=== PATIENT | female | born 1995 | race African-American/Black ===

== ENCOUNTER 2021-04-09 01:47 | Inpatient (IN) | payer SELFPAY ==
[~2021-04-09] VITALS: Ht 162.6 cm; Wt 125.7 kg
[2021-04-09 02:59] LABS: RSV AMPLIFICATION NEGATIVE (NEGATIVE)
[2021-04-09] MEDS ORDERED: MORPHINE 4 MG/ML 1ML VIAL/SYRINGE (J2270) IV ONE (03:15)
[2021-04-09] MEDS ORDERED: ONDANSETRON 4MG/2ML VIAL As Ordered ONE ×2 (04:18→19:10)
[2021-04-09] MEDS ORDERED: ONDANSETRON 4MG/2ML VIAL IV ONE (04:20)
--- NOTE | 2021-04-09 04:44 | REPVR ---
PROCEDURE INFORMATION: Exam: XR Right Ankle Exam date and time: 04/09/2021 3:02 AM Age: 25 years old Clinical indication: Pain; Ankle; Right; Additional info: Trauma TECHNIQUE: Imaging protocol: XR Right ankle. Views: 3 or more views. COMPARISON: No relevant prior studies available. FINDINGS: Bones/joints: Oblique fracture of the distal fibular diaphysis with mild displacement of the distal fragment and slight angulation. Distracted fracture of the medial malleolus. There is mild lateral subluxation of the talus relative to the distal tibia. Soft tissues: Soft tissue swelling about the ankle, greatest medially. IMPRESSION: 1. Oblique fracture of the distal fibular diaphysis with mild displacement and slight angulation of the distal fragment. 2. Distracted fracture of the medial malleolus with mild lateral subluxation of the talar dome relative to the distal tibia. Electronically signed by: Tucker Osuna On 04/09/2021 04:44:28 AM
--- NOTE | 2021-04-09 04:46 | REPVR ---
PROCEDURE INFORMATION: Exam: XR Right Tibia and Fibula Exam date and time: 04/09/2021 3:02 AM Age: 25 years old Clinical indication: Pain; Ankle; Right; Additional info: Trauma TECHNIQUE: Imaging protocol: XR Right tibia and fibula. Views: 2 views. COMPARISON: No relevant prior studies available. FINDINGS: Bones/joints: Oblique fracture of the distal fibular diaphysis with mild displacement of the distal fragment and slight angulation. Distracted and slightly displaced fracture of the medial malleolus. Mild lateral subluxation of the talar dome relative to the distal tibia. No proximal tibial or fibular fractures are seen. Soft tissues: Slight subcutaneous edema of the calf. IMPRESSION: 1. Oblique fracture of the distal fibular diaphysis with mild displacement and slight angulation. 2. Distracted and slightly displaced transverse fracture across the medial malleolus with associated mild lateral subluxation of the talar dome relative to the distal tibia. Electronically signed by: Tucker Osuna On 04/09/2021 04:46:13 AM
[2021-04-09] MEDS ORDERED: ONDANSETRON 4MG/2ML VIAL IV PRN ×2 (05:25→19:45)
[2021-04-09] MEDS ORDERED: NS 1,000 ML IV SCH ×2 (05:30→20:50)
[2021-04-09] MEDS ORDERED: HOME MED LIST COMPLETE! XX SCH (05:55)
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
[2021-04-09 06:01] LABS: HEMATOCRIT 40.4 % (36.0-47.0); MEAN CORPUSCULAR HEMOGLOBIN 28.4 pg (27.0-33.0); MEAN CORPUSCULAR HGB CONC 32.2 g/dl (32.0-36.5); MEAN CORPUSCULAR VOLUME 88.4 fl (80.0-96.0); PLATELET COUNT, AUTOMATED 431 10^3/uL (150-450); RED BLOOD COUNT 4.57 10^6/uL (4.00-5.40); WHITE BLOOD COUNT 11.9 10^3/uL (4.0-10.0)
[2021-04-09 06:11] LABS: ALBUMIN 3.9 GM/DL (3.2-5.2); ALT/SGPT 29 U/L (12-78); BILIRUBIN,TOTAL < 0.1 MG/DL (0.2-1.0); BLOOD UREA NITROGEN 13 MG/DL (7-18); CALCIUM LEVEL 9.2 MG/DL (8.5-10.1); CARBON DIOXIDE LEVEL 24 MEQ/L (21-32); CHLORIDE LEVEL 107 MEQ/L (98-107); CREATININE FOR GFR 0.83 MG/DL (0.55-1.30); ETHYL ALCOHOL (ETHANOL) 0.079 % (0.000-0.010); GLOMERULAR FILTRATION RATE > 60.0 (>60); GLUCOSE, FASTING 83 MG/DL (70-100); POTASSIUM SERUM 3.6 MEQ/L (3.5-5.1); SODIUM LEVEL 138 MEQ/L (136-145); TOTAL PROTEIN 8.5 GM/DL (6.4-8.2)
[2021-04-09 07:05] VITALS: BP 156/85
[2021-04-09 08:04] LABS: INR 1.02; PROTHROMBIN TIME 13.8 SECONDS (12.7-14.5)
[2021-04-09] MEDS: MORPHINE 4 MG/ML 1ML VIAL/SYRINGE (J2270) IV PRN (08:44)
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
[2021-04-09 13:04] LABS: HCG, SERUM QUALITATIVE NEGATIVE (NEGATIVE)
[2021-04-09] MEDS ORDERED: MIDAZOLAM INJ 2MG/2ML VIAL (J2250 PER 1MG) As Ordered ONE ×2 (13:52→19:10)
[2021-04-09] MEDS ORDERED: MORPHINE 2 MG/ML 1ML VIAL (J2270) As Ordered ONE (13:52)
[2021-04-09] MEDS: HEPARIN SOD (PORCINE) 5000UNITS/ML 1ML VIAL/SYRINGE SQ SCH ×2 (14:00→21:53)
[2021-04-09] MEDS ORDERED: MORPHINE 10 MG/ML 1ML VIAL (J2270) IV PRN (14:09)
[2021-04-09] MEDS ORDERED: MIDAZOLAM INJ 2MG/2ML VIAL (J2250 PER 1MG) IV PRN (14:10)
[2021-04-09] MEDS ORDERED: ceFAZolin 2 GM/D5W 50 ML IV BAG (J0690 PER 500MG) As Ordered ONE (17:20)
[2021-04-09] MEDS ORDERED: ceFAZolin 1GM VIAL (J0690 PER 500MG) As Ordered ONE (17:21)
[2021-04-09] MEDS ORDERED: BUPIVACAINE LIPOSOME/PF 1.3% 20ML VIAL (13.3MG/ML)(EXPAREL)(C9290 PER1MG) As Ordered ONE (18:59)
[2021-04-09] MEDS ORDERED: BUPIVACAINE HCL 0.25% 10ML VIAL As Ordered ONE (18:59)
[2021-04-09] MEDS ORDERED: ACETAMINOPHEN 1000MG 100ML IV BTL (OFIRMEV) (J0131 PER 10MG) As Ordered ONE (19:10)
[2021-04-09] MEDS ORDERED: SUGAMMADEX SODIUM 500 MG/5 ML VIAL (BRIDION) As Ordered ONE (19:10)
[2021-04-09] MEDS ORDERED: LIDOCAINE 2% 100MG/5ML SDV (FOR ANES.) As Ordered ONE (19:10)
[2021-04-09] MEDS ORDERED: dexameTHASONE 4 MG/ML 1ML VIAL (J1100 PER 1MG) As Ordered ONE (19:10)
[2021-04-09] MEDS ORDERED: GLYCOPYRROLATE INJ 0.2 MG/ML 2 ML VIAL As Ordered ONE (19:10)
[2021-04-09] MEDS ORDERED: HYDROmorphone HCL 2 MG/ML 1ML VIAL As Ordered ONE (19:10)
[2021-04-09] MEDS ORDERED: ROCURONIUM BROMIDE 50 MG/5 ML VIAL As Ordered ONE (19:10)
[2021-04-09] MEDS ORDERED: fentaNYL 100 MCG/2 ML INJECTION (J3010) As Ordered ONE ×2 (19:10→19:41)
[2021-04-09] MEDS ORDERED: propofoL 200 MG/20 ML VIAL As Ordered ONE (19:10)
--- NOTE | 2021-04-09 19:41 | ROOPDOC ---
[facility] Report Of Operation Report of Operation DATE OF PROCEDURE: 04/09/21 PREPROCEDURE DIAGNOSES: [Right bimalleolar ankle fracture Hernandez C]. POSTPROCEDURE DIAGNOSES: [Right bimalleolar ankle fracture Hernandez C]. PROCEDURE PERFORMED: [Open reduction internal fixation right ankle fracture, syndesmosis reduction and fixation using 2 tight ropes.]. SURGEON: [Brian laboy], SOIL FIELD TECHNICIAN: [technical administrator], ANESTHESIA: [General anesthetic]. ESTIMATED BLOOD LOSS: Approximately [100 cc] mL. COMPLICATIONS: [No complication]. REMARKS: . FINDINGS: [Hernandez a fracture with disruption of the syndesmosis and transverse medial malleolus avulsion fracture.] SPECIMENS REMOVED: PROCEDURE NOTE: . DESCRIPTION OF PROCEDURE: [Patient was met in the holding area. H&P was reviewed. Consent was confirmed. Right leg was marked. Patient was then taken into the operative room here at [facility]. He was then given a general anesthetic in usual manner. She was given 3 g of Ancef preoperatively. Pressure cuff was then applied to the right upper thigh. Total tourniquet time was less than 1 hour. Patient is then prepped and draped in usual manner Patient is placed supine the operative room table. A bump was placed under her right hip. Her right leg was then elevated on a bolster. We then did fluoroscopic x-rays. She had a transverse medial malleolus fracture. Widening of syndesmosis and a distal third fibula fracture with a large posterior butterfly fragment. We first started with the medial malleolus. He made an incision over the medial malleolus approximately 2 inches in length. We deepened that down to the fracture site. Elevated periosteum off the edges. We then irrigated out the ankle joint and fracture. We then use a drill hole on large sharp reduction forceps to reduce the fracture. Using fluoroscopic guidance we thought we had an anatomic reduction. We then used 4.0 cannulated screws to maintain the reduction. Foot was placed K wires through percutaneous incisions. Wires went across the fracture at 90 degrees. We then used a cannulated drill over the wires. And then placed 40 and 50 mm cannulated screws. Fluoroscopic guidance we thought we got a good anatomic reduction of the medial malleolus. Proceeded now to lateral side. Mated to incision directly lateral over the fibula at the level of the syndesmosis. The fracture was proximal so we reduce the syndesmosis using a large AO reduction forceps. With the syndesmosis reduced we also thought we had good anatomic reduction of the fibula and a good anatomic reduction syndesmosis. Symmetric mortise. We then decided to use 2 Arthrex tight rope's to maintain the syndesmosis in a reduced position. We tried to place the first tightrope approximately 2 cm above the ankle joint and the other 1 approximately 3.5 cm above the ankle joint. We placed tightrope using fluoroscopic guidance aiming approximately 30 degrees anterior. We tightened both tightropes. We then remove the clamp. We took final x-rays. We irrigated wound with copious amounts of saline. Closed the both wounds with 2-0 Vicryl interrupted and a running Monocryl. We used Steri-Strips to help with closure. We then infiltrated the wound with Marcaine and Exparel. We placed a sterile dressing over the wounds. We then placed the patient in a plaster splint for comfort. She is then awakened from anesthesia. [facility] And [facility] to recovery in a sterile manner. Plan: Nonweightbearing right ankle for 6 weeks. DVT prophylaxis 81 mg p.o. twice daily Ancef 2 g IV every 8 H by 2 doses. BRIAN LOVELACE MD Apr 09, 2021 19:41
[2021-04-09] MEDS: fentaNYL 100 MCG/2 ML INJECTION (J3010) IV PRN ×2 (19:42→19:47)
[2021-04-09] MEDS ORDERED: MORPHINE 2 MG/ML 1ML VIAL (J2270) IV PRN (19:45)
[2021-04-09] MEDS ORDERED: oxyCODONE 5MG TAB PO PRN (19:45)
[2021-04-09] MEDS ORDERED: LR 1,000 ML IV SCH (19:45)
[2021-04-09 20:15] VITALS: BP 153/83
[2021-04-09 21:15] VITALS: BP 155/88
[2021-04-09] MEDS: PERCOCET 5MG/325MG TAB PO PRN (22:28)
[2021-04-10 00:38] VITALS: O2SAT 99
[2021-04-10] MEDS: ceFAZolin SOD 2 GM in IV 1 EA IV SCH ×2 (01:55→10:26)
[2021-04-10 02:00] VITALS: BP 144/78
[2021-04-10] MEDS: PERCOCET 5MG/325MG TAB PO PRN ×3 (03:06→18:30)
[2021-04-10] MEDS: MORPHINE 4 MG/ML 1ML VIAL/SYRINGE (J2270) IV PRN ×3 (03:56→20:22)
[2021-04-10] MEDS: HEPARIN SOD (PORCINE) 5000UNITS/ML 1ML VIAL/SYRINGE SQ SCH (03:57)
[2021-04-10 04:00] VITALS: O2SAT 99
[2021-04-10 06:00] VITALS: BP 136/84
--- NOTE | 2021-04-10 08:15 | REP ---
INDICATION: right ankle 3 views pop#1 COMPARISON: 04/09/2021 TECHNIQUE: AP, lateral, oblique views of the right ankle FINDINGS: Evidence for prior open reduction and fixation. Oblique fracture of the distal fibular diaphysis noted. Further evaluation is limited by overlying cast material. IMPRESSION: Stable satisfactory fracture fixation. <Electronically signed by Bautista Hendricks > 04/10/21 0860
--- NOTE | 2021-04-10 08:22 | REP ---
INDICATION: ORIF RIGHT ANKLE FRACTURE. COMPARISON: None. TECHNIQUE: Intraoperative fluoroscopic imaging using portable C-arm technique. FINDINGS: Patient is status post open reduction and fixation for medial malleolus fracture. Nondisplaced fracture of the distal fibular diaphysis is also identified. Total fluoroscopic time 2 minutes 50 seconds. IMPRESSION: Status post satisfactory open reduction and fixation. <Electronically signed by Bautista Hendricks > 04/10/21 0819
[2021-04-10] MEDS: ASPIRIN 81 MG CHEW TABLET PO SCH ×2 (08:50→20:21)
[2021-04-10 10:10] LABS: BASO % 0.1 % (0.0-1.0); EOS % 0.1 % (0.0-3.0); HEMATOCRIT 35.9 % (36.0-47.0); HEMOGLOBIN 11.7 g/dl (12.0-15.5); LYMPH # 1.5 10^3/uL (1.5-5.0); LYMPH % 10.3 % (24.0-44.0); MEAN CORPUSCULAR HEMOGLOBIN 28.5 pg (27.0-33.0); MEAN CORPUSCULAR HGB CONC 32.6 g/dl (32.0-36.5); MEAN CORPUSCULAR VOLUME 87.6 fl (80.0-96.0); MONO # 0.9 10^3/uL (0.0-0.8); MONO % 6.5 % (2.0-8.0); NEUTROPHILS # 11.7 10^3/uL (1.5-8.5); NEUTROPHILS % 82.6 % (36.0-66.0); PLATELET COUNT, AUTOMATED 396 10^3/uL (150-450); WHITE BLOOD COUNT 14.2 10^3/uL (4.0-10.0)
[2021-04-10 11:06] LABS: ALBUMIN 3.4 GM/DL (3.2-5.2); ALT/SGPT 22 U/L (12-78); BILIRUBIN,TOTAL 0.1 MG/DL (0.2-1.0); BLOOD UREA NITROGEN 8 MG/DL (7-18); CALCIUM LEVEL 8.7 MG/DL (8.5-10.1); CARBON DIOXIDE LEVEL 25 MEQ/L (21-32); CHLORIDE LEVEL 107 MEQ/L (98-107); CREATININE FOR GFR 0.81 MG/DL (0.55-1.30); GLOMERULAR FILTRATION RATE > 60.0 (>60); GLUCOSE, FASTING 107 MG/DL (70-100); MAGNESIUM LEVEL 2.2 MG/DL (1.8-2.4); PHOSPHORUS LEVEL 3.3 MG/DL (2.5-4.9); POTASSIUM SERUM 4.3 MEQ/L (3.5-5.1); SODIUM LEVEL 139 MEQ/L (136-145); TOTAL PROTEIN 7.3 GM/DL (6.4-8.2)
--- NOTE | 2021-04-10 11:12 | IPNPDOC ---
Text Note Date of Service The patient was seen on 04/10/21. NOTE Postop open reduction internal fixation left ankle. Patient awake alert and oriented. Comfortable sitting in a chair. She states she is mobilized with crutches with physical therapy. Complaining of some mild heel pain Pain otherwise well controlled. On examination Good capillary refill Sensory intact to light touch right foot Complaining of some mild heel pain Full range of motion of knee no pain Patient compliant with nonweightbearing status Splint removed Incision shows discharge absorbent onto the dressing Patient declined any dressing change Sterile dressing should be good for 2 weeks New splint applied Stockinette, Webril Ortho cast U slab and posterior slab Completed with Isac bandage. Patient tolerated procedure very well. States she had no heel pain after that. Postop x-rays. Satisfactory fixation, syndesmosis looks reduced, ankle joint symmetrical and reduced. Plan: 1. PT to mobilize nonweightbearing right ankle 2. Follow-up 1 week outpatient orthopedics [facility] orthopedics 3. Aspirin 81 mg p.o. twice daily for DVT prophylaxis. 4. Aim to discharge tomorrow morning once mobilized safely with physical therapy. VS,Huberbone, I+O VS, Fishbone, I+O Laboratory Tests 04/10/21 09:52 Vital Signs Date Time Temp Pulse Resp B/P (MAP) Pulse Ox O2 Delivery O2 Flow Rate FiO2 04/10/21 08:51 18 04/10/21 06:00 99.4 100 136/84 (101) 100 Room Air 04/10/21 03:56 99.0 I&O- Last 24 Hours up to 6 AM 04/10/21 06:00 Intake Total 2590 ml Output Total 100 ml Balance 2490 ml MALA LOVELACE MD Apr 10, 2021 11:12
[2021-04-10] MEDS ORDERED: NICOTINE 14 MG/24 HR TRANSDERMAL TD PRN (11:50)
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
[2021-04-10] MEDS: ACETAMINOPHEN TAB 650MG DOSE (2X325MG) PO PRN (15:55)
[2021-04-10 22:00] VITALS: BP 146/80
[2021-04-11] MEDS: PERCOCET 5MG/325MG TAB PO PRN ×4 (00:43→15:39)
[2021-04-11 06:00] VITALS: BP 151/85
[2021-04-11 06:23] LABS: BASO % 0.4 % (0.0-1.0); EOS # 0.2 10^3/uL (0.0-0.5); EOS % 1.8 % (0.0-3.0); HEMATOCRIT 31.8 % (36.0-47.0); HEMOGLOBIN 10.1 g/dl (12.0-15.5); LYMPH # 2.1 10^3/uL (1.5-5.0); MEAN CORPUSCULAR HEMOGLOBIN 28.2 pg (27.0-33.0); MEAN CORPUSCULAR HGB CONC 31.8 g/dl (32.0-36.5); MEAN CORPUSCULAR VOLUME 88.8 fl (80.0-96.0); MONO # 0.8 10^3/uL (0.0-0.8); MONO % 8.9 % (2.0-8.0); NEUTROPHILS # 5.4 10^3/uL (1.5-8.5); NEUTROPHILS % 63.7 % (36.0-66.0); PLATELET COUNT, AUTOMATED 323 10^3/uL (150-450); RED BLOOD COUNT 3.58 10^6/uL (4.00-5.40); WHITE BLOOD COUNT 8.5 10^3/uL (4.0-10.0)
[2021-04-11 06:50] LABS: BLOOD UREA NITROGEN 10 MG/DL (7-18); CALCIUM LEVEL 8.3 MG/DL (8.5-10.1); CARBON DIOXIDE LEVEL 26 MEQ/L (21-32); CHLORIDE LEVEL 109 MEQ/L (98-107); CREATININE FOR GFR 0.76 MG/DL (0.55-1.30); GLOMERULAR FILTRATION RATE > 60.0 (>60); GLUCOSE, FASTING 88 MG/DL (70-100); MAGNESIUM LEVEL 2.1 MG/DL (1.8-2.4); PHOSPHORUS LEVEL 3.1 MG/DL (2.5-4.9); SODIUM LEVEL 141 MEQ/L (136-145)
[2021-04-11] MEDS: ASPIRIN 81 MG CHEW TABLET PO SCH (08:16)
[2021-04-11] MEDS: ACETAMINOPHEN TAB 650MG DOSE (2X325MG) PO PRN (08:17)
[2021-04-11] MEDS ORDERED: ENOXAPARIN 40MG/0.4ML SYRINGE (J1650 PER 10MG) SC SCH (09:00)
[2021-04-11 14:00] VITALS: BP 137/86
[2021-04-11] MEDS ORDERED: ASPI81CH8 PO (15:20)
[2021-04-11] MEDS ORDERED: PERCOCET PO (15:20)
[2021-04-11] MEDS ORDERED: ACET1TAB55 PO (15:20)
--- NOTE | 2021-04-12 08:27 | IPN ---
PROGRESS NOTE DATE: 04/11/2021 SUBJECTIVE: Kizzy is seen on [address]. She is status post ORIF of left ankle fracture. Pain control is poor. She is asking for pain meds upon my entering the room. She is nonweightbearing to the right ankle. She had reactive leukocytosis and it is improved. Physical Therapy is working with her. OBJECTIVE: VITAL SIGNS: Afebrile. Vital signs are stable. LUNGS: Clear. HEART: Regular rhythm. ABDOMEN: Soft, nontender. EXTREMITIES: No peripheral edema. LABORATORY DATA: White count 8.5, hemoglobin 10.1, platelets 321,000, sodium 141, potassium 4, BUN 10, creatinine 0.7, glucose 88. IMPRESSION: ORIF of right ankle fracture. Postop day #2. Waiting for Physical Therapy to see her. She should be able to go home once she is cleared by PT.
== END 2021-04-11 16:00 | disposition home or self-care (01) | DRG 313 ==
LOC: M ED 01:47 → M ED INP 05:17 → ENRESERV 05:57 → M MS5PR 06:45
PROVIDERS: ADMIT Internal Medicine; ATTEND Family Medicine
PROC: 0SSF04Z Reposition Right Ankle Joint with Internal Fixation Device, Open Approach (ICD-10-PCS; principal; 2021-04-09 10:21)
DX: S82.841A Displaced bimalleolar fracture of right lower leg, initial encounter for closed fracture (principal); Z20.822 Contact with and (suspected) exposure to COVID-19; Y04.2XXA Assault by strike against or bumped into by another person, initial encounter; Y92.9 Unspecified place or not applicable

== ENCOUNTER → 2021-04-21 | Outpatient (CLI) | payer MEDICAID, SELFPAY ==
[~2021-04-21] MED LIST: ACET1TAB55 PO; ASPI81CH8 PO; PERCOCET PO
== END ==
LOC: M SOG 10:03
PROVIDERS: ATTEND Orthopaedic Surgery
DX: Z48.89 Encounter for other specified surgical aftercare (principal); S82.831D Other fracture of upper and lower end of right fibula, subsequent encounter for closed fracture with routine healing; X58.XXXD Exposure to other specified factors, subsequent encounter; Y92.9 Unspecified place or not applicable; Y93.9 Activity, unspecified; Y99.9 Unspecified external cause status

== ENCOUNTER → 2021-05-05 | Outpatient (CLI) | payer MEDICAID, SELFPAY | LOC: M SOG 05-04 15:26 | PROVIDERS: ATTEND Orthopaedic Surgery | DX: S82.841D Displaced bimalleolar fracture of right lower leg, subsequent encounter for closed fracture with routine healing (principal); X58.XXXD Exposure to other specified factors, subsequent encounter; Y92.9 Unspecified place or not applicable; Y93.9 Activity, unspecified; Y99.9 Unspecified external cause status ==

== ENCOUNTER → 2021-05-19 | Outpatient (CLI) | payer MEDICAID | LOC: M SOG 11:15 | PROVIDERS: ATTEND Orthopaedic Surgery | DX: S82.841D Displaced bimalleolar fracture of right lower leg, subsequent encounter for closed fracture with routine healing (principal); X58.XXXD Exposure to other specified factors, subsequent encounter; Y92.9 Unspecified place or not applicable ==

== ENCOUNTER → 2021-07-05 | Outpatient (CLI) | payer MEDICAID | LOC: M SOG 08:41 | PROVIDERS: ATTEND Orthopaedic Surgery | DX: S82.841D Displaced bimalleolar fracture of right lower leg, subsequent encounter for closed fracture with routine healing (principal); X58.XXXD Exposure to other specified factors, subsequent encounter; Y92.9 Unspecified place or not applicable; Y93.9 Activity, unspecified; Y99.9 Unspecified external cause status ==